=== PATIENT | male | born 1985 | race Caucasian/White ===

== ENCOUNTER 2020-01-24 04:50 | Emergency (ER) | payer OTHER ==
[~2020-01-24] VITALS: Ht 177.8 cm; Wt 91.0 kg
[2020-01-24 05:15] VITALS: BP 117/61
[2020-01-24] MEDS ORDERED: CHOL500043 PO (05:16)
[2020-01-24] MEDS ORDERED: CALC300T30 PO (05:16)
[2020-01-24] MEDS ORDERED: IBUP-2071 PO (05:16)
[2020-01-24] MEDS ORDERED: MULT-248 PO (05:16)
[2020-01-24] MEDS ORDERED: CEPHALEXIN MONOHYDRATE 500 MG CAPSULE PO ONE (06:30)
[2020-01-24] MEDS ORDERED: LIDOCAINE 1% 10 ML VIAL INJ ONE (06:30)
[2020-01-24] MEDS ORDERED: DOXYCYCLINE HYCLATE 100 MG TABLET PO ONE (06:30)
== END 2020-01-24 07:24 | disposition home or self-care (01) ==
LOC: EMS 04:53
DX: S30.852A Superficial foreign body of penis, initial encounter (principal); L03.818 Cellulitis of other sites; L02.91 Cutaneous abscess, unspecified; Z79.899 Other long term (current) drug therapy; X58.XXXA Exposure to other specified factors, initial encounter; Y93.89 Activity, other specified; Y92.89 Other specified places as the place of occurrence of the external cause; Y99.8 Other external cause status
CPT/HCPCS: 10120; 99285; J3490

== ENCOUNTER 2020-06-18 07:31 | Emergency (ER) | payer OTHER ==
[~2020-06-18] VITALS: Ht 177.8 cm; Wt 95.5 kg
[~2020-06-18 07:31] MED LIST: CALC300T30 PO; CHOL500043 PO; IBUP-2071 PO; MULT-248 PO
[2020-06-18 07:44] VITALS: BP 112/60
[2020-06-18] MEDS ORDERED: LIDOCAINE 1%/EPI 1:200,000/PF 30 ML VIAL SQ ONE (07:45)
[2020-06-18] MEDS ORDERED: PERTUSS(ACELL),DIPH,TET VAC/PF 0.5 ML SYRINGE IM. ONE (07:45)
[2020-06-18] MEDS ORDERED: BACITRACIN 0.9 GM PACKET OINTMENT TP ONE (09:30)
== END 2020-06-18 10:00 | disposition home or self-care (01) ==
LOC: EMS 07:31
DX: S06.0X9A Concussion with loss of consciousness of unspecified duration, initial encounter (principal); S02.2XXA Fracture of nasal bones, initial encounter for closed fracture; S01.01XA Laceration without foreign body of scalp, initial encounter; Y04.2XXA Assault by strike against or bumped into by another person, initial encounter; Y93.89 Activity, other specified; Y92.89 Other specified places as the place of occurrence of the external cause; Y99.0 Civilian activity done for income or pay
CPT/HCPCS: 70450; 70486; 72125; 90471; 90715; 99285; J3490